=== PATIENT | male | born 1970 | race Caucasian/White ===

== ENCOUNTER 2018-09-09 05:58 | Day surgery (SDC) | payer OTHER ==
[~2018-09-09 05:58] MED LIST: ALTACE5 MG PO; TRICOR145 MG PO
[2018-09-09] MEDS ORDERED: PERCOCET 5-3251 EACH PO (08:09)
[2018-09-09] MEDS ORDERED: NUPERCAINAL56.7 GM TOP (08:10)
== END 2018-09-09 14:00 | disposition home or self-care (01) ==
LOC: CIR.AMB 05:58
DX: K60.3 Anal fistula (principal)

== ENCOUNTER 2022-04-03 19:28 | Inpatient (IN) | payer OTHER ==
[~2022-04-03] VITALS: Ht 172.7 cm; Wt 81.6 kg
[~2022-04-03 19:28] MED LIST changes: +NUPERCAINAL56.7 GM TOP; +PERCOCET 5-3251 EACH PO
--- NOTE | 2022-04-03 20:23 | NUR ---
SE RECIBE PACIENTE ALERTA Y ORIENTADO X3 QUIEN REFIERE PRESENTA DOLOR ABDOMINAL Y NAUSEAS DESDE HOY. SE MONITOREAN LOS SV Y SE UBICA EN DEMAR.
--- NOTE | 2022-04-03 21:59 | NUR ---
SE EDUCA PACIENTE SOBRE EL [place] MEDICO Y BETO REFIERE ENTENDER. SE CANALIZA Y SE ADMINISTRA MEDS TAYLOR ORDEN MEDICA. SE KALEIGH MUESTRAS DE LABORATORIO Y BETO ENTREGA ORINA. PENDIENTE CT SCAN
--- NOTE | 2022-04-04 01:30 | NUR ---
SE RECIBE PTE DEL TURNO ANTERIOR, ALERTA Y ORIENTADO EN BLAINE AVINASH ESFERAS, UBICADO EN AKHIL, NIVEL MAS BAJO, FORRETSER DE IDENTIFICACION Y BARANDAS ELEVADAS POR PRECAUCION. SE OBSERVA CON BUEN PATRON RESPIRATORIO. PIEL TIBIA AL TACTO. IV PATENTE Y JOSE MARTIN DE EDEMA O ERITEMA RECIBIENDO 0.9% NSS @120ML/HR. PENDIENTE RE EVALUACION MEDICA.
--- NOTE | 2022-04-04 07:14 | NUR ---
SE RECIBE PTE EN AKHIL ALERTA Y ORIENTADO X3 REFIRIENDO QUE SE LE ADMINISTRO MEDICAMENTO Y QUE ESTA TODAVIA CON UN POCO DE DOLOR. SE VERIFICA LA IDENTIFICACION LA CUAL ES CORRECTA Y SE LE REALIZAN LOS S/V. SE LINNEA EN AKHIL PARA SEGUIMIENTO DE TRATAMIENTO.
[2022-04-04] MEDS ORDERED: TAMSULOSIN HCL0.4 MG (13:44)
[2022-04-04] MEDS ORDERED: DESVENLAFAXINE50 M3 (13:45)
[2022-04-04] MEDS ORDERED: BUPROPION XL150 MG (13:45)
[2022-04-04] MEDS ORDERED: CLONAZEPAM0.5 MG (13:45)
== END 2022-04-06 09:45 | disposition home or self-care (01) | DRG 419 ==
LOC: ER 19:28 → MEDI 04-04 11:53 → SEC-K 04-04 11:53 → MEDI 04-04 15:18
PROVIDERS: Specialist; ADMIT Internal Medicine; ATTEND Internal Medicine
PROC: BW21ZZZ Computerized Tomography (CT Scan) of Abdomen and Pelvis (ICD-10-PCS; 2022-04-04)
PROC: BW40ZZZ Ultrasonography of Abdomen (ICD-10-PCS; 2022-04-04)
PROC: BF532ZZ Other Imaging of Gallbladder and Bile Ducts using Fluorescing Agent (ICD-10-PCS; 2022-04-05)
PROC: 0FT44ZZ Resection of Gallbladder, Percutaneous Endoscopic Approach (ICD-10-PCS; principal; 2022-04-05 07:00)
DX: K81.0 Acute cholecystitis (principal); K60.3 Anal fistula

== ENCOUNTER 2023-01-17 13:48 | Emergency (ER) | payer OTHER ==
[~2023-01-17] VITALS: Ht 180.3 cm; Wt 80.7 kg
[~2023-01-17 13:48] MED LIST changes: +BUPROPION XL150 MG; +CLONAZEPAM0.5 MG; +DESVENLAFAXINE50 M3; +TAMSULOSIN HCL0.4 MG
[2023-01-17 19:44] LABS: HEMATOCRIT 47.9 % (39.0-48.0); HEMOGLOBIN 16.5 g/dL (13-16.00); MEAN CELL VOLUME 92.4 fL (80.0-100.00); MEAN CORPUSCULAR HEMOGLOBIN 31.8 pg (27.00-32.0); MEAN CORPUSCULAR HGB CONC 34.5 g/dl (32.0-36.0); PLATELET COUNT 316 K/uL (150-450); RED BLOOD COUNT 5.19 M/uL (4.00-6.00); RED CELL DISTRIBUTION WIDTH 14.3 % (11.5-14.5)
[2023-01-17 19:54] LABS: CALCIUM 9.1 mg/dL (8.5-10.1); CREATININE SERUM 1.12 mg/dL (0.70-1.30); GFR 68.32; POTASSIUM 3.83 mEq/L (3.5-5.1)
== END 2023-01-17 20:44 | disposition home or self-care (01) ==
LOC: ER 13:48
PROVIDERS: General Practice
DX: R42 Dizziness and giddiness (principal); Z88.6 Allergy status to analgesic agent